=== PATIENT | female | born 1950 | race Caucasian/White ===

== ENCOUNTER 2020-04-28 22:14 | Observation (INO) | payer OTHER ==
[~2020-04-28] VITALS: Ht 162.6 cm; Wt 63.0 kg
[2020-04-28 22:18] VITALS: BP 155/96
[2020-04-28] MEDS ORDERED: OMEPRAZOLE 20 M20 M1 PO (22:22)
[2020-04-28] MEDS ORDERED: PRAVASTATIN SOD40 MG PO (22:22)
[2020-04-28] MEDS ORDERED: SINGULAIR 10 MG10 M1 PO (22:23)
[2020-04-28] MEDS ORDERED: CARTIA XT120 M1 PO (22:23)
[2020-04-28] MEDS ORDERED: DETROL LA4 MG PO (22:24)
[2020-04-28] MEDS ORDERED: COQ-10100 MG PO (22:24)
[2020-04-28] MEDS ORDERED: DIAZEPAM 5 MG5 M1 PO (22:24)
[2020-04-28] MEDS ORDERED: VITAMIN B12-FO1 EAC1 PO (22:25)
[2020-04-28] MEDS ORDERED: VITAMIN A8000 UNI1 PO (22:25)
[2020-04-28] MEDS ORDERED: VITAMIN D325 MC3 PO (22:25)
[2020-04-28] MEDS ORDERED: ASA81BEC PO (22:26)
[2020-04-29 03:31] LABS: ABSOLUTE LYMPHOCYTES 2.1 thou/uL (0.8-5.3); ABSOLUTE MONOCYTES 0.4 thou/uL (0.0-1.2); ABSOLUTE NEUTROPHILS 8.9 thou/uL (1.6-8.1); BASOPHILS 0.3 %; EOSINOPHILS 0.4 %; HEMATOCRIT 35.6 % (37.0-47.0); HEMOGLOBIN 12.1 gm/dL (12.0-15.0); LYMPHOCYTES 18.1 %; MCH 31.3 pg (26.0-34.0); MCHC 34.1 g/dL (28.0-37.0); MCV 91.8 fL (80.0-100.0); MONOCYTES 3.7 %; MPV 10.3 fl. (7.2-11.1); NUCLEATED RBCS 0 /100WBC; PLATELET COUNT* 206 thou/uL (150-400); POLYS 77.5 %; RBC 3.88 mil/uL (4.20-5.00); RDW-CV 13.9 % (10.5-14.5); WBC 11.5 thou/uL (4.0-11.0)
[2020-04-29 03:49] LABS: CALCIUM 8.2 mg/dL (8.5-10.1); CREATININE 1.3 mg/dL (0.6-1.3); POTASSIUM 3.5 mmol/L (3.5-5.1)
[2020-04-29 04:43] VITALS: BP 151/57
[2020-04-29 04:45] VITALS: BP 148/63
--- NOTE | 2020-04-29 06:22 | NUR ---
PT ARRIVED AT 0440. A&O, ON 2L BY BRANDON, CALVIN. C/O PAIN, N/V. MORPHINE AND ZOFRAN GIVEN. LT KNEE IMMOBILIZER IN PLACE. IVF INFUSING ORDERED. CALL LIGHT WITHIN REACH. WILL CONTINUE TO MONITOR.
[2020-04-29 08:05] VITALS: BP 129/56
[2020-04-29 11:26] VITALS: BP 130/80
[2020-04-29 15:55] VITALS: BP 139/64
--- NOTE | 2020-04-29 17:49 | NUR ---
PT HAD L KNEE ASPIRATION TODAY. IMMOBILIZER IN PLACE. WORKED WT PT. IVF INFUSING. N/V.
[2020-04-29 20:40] VITALS: BP 139/55
--- NOTE | 2020-04-30 05:35 | NUR ---
PATIENT HAS REMAINED ALERT AND ORIENTED X 4 THROUGHOUT THE SHIFT AND RESTING QUIETLY ON HOURLY ROUNDS. NO NAUSEA THIS SHIFT. MILD LEFT KNEE DISCOMFORT NOT REQUIRING INTERVENTION. UP TO BSC WITH LEFT KNEE IMMOBILIZER. AWAITING 3-D HINGE BRACE. VITAL SIGNS STABLE. HOPES TO GO HOME TODAY AFTER STEP INSTRUCTION WITH THERAPY. CONTINUE TO MONITOR.
[2020-04-30 06:44] LABS: ABSOLUTE BASOPHILS 0.1 thou/uL (0.0-0.2); ABSOLUTE EOSINOPHILS 0.3 thou/uL (0.0-0.7); ABSOLUTE LYMPHOCYTES 2.2 thou/uL (0.8-5.3); ABSOLUTE MONOCYTES 0.4 thou/uL (0.0-1.2); ABSOLUTE NEUTROPHILS 4.4 thou/uL (1.6-8.1); BASOPHILS 0.9 %; EOSINOPHILS 3.7 %; HEMATOCRIT 31.4 % (37.0-47.0); HEMOGLOBIN 10.8 gm/dL (12.0-15.0); LYMPHOCYTES 29.7 %; MCH 31.8 pg (26.0-34.0); MCHC 34.4 g/dL (28.0-37.0); MCV 92.4 fL (80.0-100.0); MONOCYTES 5.7 %; MPV 10.3 fl. (7.2-11.1); NUCLEATED RBCS 0 /100WBC; PLATELET COUNT* 175 thou/uL (150-400); WBC 7.3 thou/uL (4.0-11.0)
[2020-04-30 06:51] LABS: CALCIUM 7.9 mg/dL (8.5-10.1); CREATININE 1.2 mg/dL (0.6-1.3)
[2020-04-30 08:21] VITALS: BP 132/54
--- NOTE | 2020-04-30 17:16 | NUR ---
PT UP TO BEDSIDE COMMODE WITH BRACE AND WALKER. TOLERATES WELL. DECREASED N/V. DIET ADVANCED. TOLERATING WELL.
[2020-04-30 20:30] VITALS: BP 148/61
--- NOTE | 2020-05-01 04:49 | NUR ---
PATIENT HAS REMAINED ALERT AND ORIENTED X 4 THROUGHOUT THE SHIFT AND RESTING QUIETLY ON HOURLY ROUNDS. TYLENOL ONLY FOR HEADACHE AND LOW-GRADE TEMP EFFECTIVE. VITAL SIGNS STABLE. TOLERATING UP TO BSC WITH IMMOBILIZER. PT TODAY TO EVALULATE STAIRS AND 3-D HINGE BRACE AND HOPEFULLY HOME. CONTINUE TO MONITOR.
[2020-05-01 07:25] VITALS: BP 162/52
[2020-05-01 10:18] VITALS: BP 162/52
[2020-05-01 10:23] LABS: ABSOLUTE BASOPHILS 0.1 thou/uL (0.0-0.2); ABSOLUTE EOSINOPHILS 0.3 thou/uL (0.0-0.7); ABSOLUTE LYMPHOCYTES 1.6 thou/uL (0.8-5.3); ABSOLUTE MONOCYTES 0.6 thou/uL (0.0-1.2); ABSOLUTE NEUTROPHILS 4.7 thou/uL (1.6-8.1); BASOPHILS 0.7 %; EOSINOPHILS 4.8 %; HEMATOCRIT 33.4 % (37.0-47.0); HEMOGLOBIN 11.6 gm/dL (12.0-15.0); MCH 31.9 pg (26.0-34.0); MCHC 34.6 g/dL (28.0-37.0); MONOCYTES 7.7 %; MPV 9.8 fl. (7.2-11.1); NUCLEATED RBCS 0 /100WBC; PLATELET COUNT* 184 thou/uL (150-400); POLYS 64.8 %; RBC 3.63 mil/uL (4.20-5.00); RDW-CV 13.7 % (10.5-14.5); WBC 7.3 thou/uL (4.0-11.0)
[2020-05-01 10:31] LABS: CALCIUM 8.7 mg/dL (8.5-10.1); CREATININE 1.1 mg/dL (0.6-1.3); POTASSIUM 4.1 mmol/L (3.5-5.1)
[2020-05-01 11:31] VITALS: BP 162/52
[2020-05-01 12:05] VITALS: BP 162/52
--- NOTE | 2020-05-01 12:08 | NUR ---
CM SPOKE TO THE PT TO DISCUSS HER HOME SITUATION, DISCHARGE PLANNING, AND TO INFORM OF THE ROLE OF CM. PT A&O, INDEPENDENT WITH ADL'S, AND ACTIVE. PT RESIDES AT HOME WITH HER DTR AND SHE IS ABLE TO ASSIST THE PT NEEDED. PT OWNS CRUTCHES. NO OTHER DME. PT HAS NO HX OF HH OR SNF. PT INFORMS THAT SHE WAS ININTIALLY OPEN TO HH AT D/C. HOWEVER, AFTER WORKING WITH P.T. SHE NOW DECINES HH. CM EDUCATED AND INFORMED THE PATIENT OF THE BENEFITS OF HH, AND PT CONTINUED TO DECLINE. RN AND PHYSICIAN INFORMED. CM WILL REMAIN AVAILABLE TO ASSIST AND FOLLOW NEEDED.
[2020-05-01 12:43] VITALS: BP 162/52
--- NOTE | 2020-05-01 12:44 | NUR ---
PT GIVEN DISCHARGE INFORMATION. PT REFUSED HOME HEALTH. PT PASSED PT. PT BELONGINGS GATHERED. PT LEFT VIA WHEELCHAIR WITH NURSING STAFF TO HOME. FALL RISK PRECAUTIONS IN PLACE. HOURLY ROUNDING COMPLETED.
== END 2020-05-01 12:45 | disposition home or self-care (01) ==
LOC: M.ERS 22:14 → M.TBA-ER 04-29 04:00 → M.ORTHSURG 04-29 04:00
PROVIDERS: Emergency Medicine; ADMIT Internal Medicine; ATTEND Internal Medicine
DX: M25.062 Hemarthrosis, left knee (principal); S72.422A Displaced fracture of lateral condyle of left femur, initial encounter for closed fracture; W01.0XXA Fall on same level from slipping, tripping and stumbling without subsequent striking against object, initial encounter; Y93.89 Activity, other specified; Y92.89 Other specified places as the place of occurrence of the external cause; Y99.8 Other external cause status